=== PATIENT | male | born 1980 | race Caucasian/White ===

== ENCOUNTER 2017-01-01 18:05 | Emergency (ER) | payer SELFPAY ==
[2017-01-01 18:16] VITALS: BP 126/80
--- NOTE | 2017-01-01 18:32 | EDM.PDOC ---
ED HPI EYE COMPLAINT - General Chief Complaint: Eye Problems Stated Complaint: PAIN LT EYE Time Seen by Provider: 01/01/17 18:10 Source: Reports: Patient History Limitations: Reports: No limitations - History of Present Illness INITIAL COMMENTS - FREE TEXT/NARRATIVE: History of present illness: [Patient coming in complaining of acute pain to left eye. Patient indicates the pain is in the eyelid and feels like it wants is there and that they live feels that her full her in this morning it was erythematous. Patient indicates that it is worse in the morning when he wakes up and it feels like there's something in his eye lid.] Review of systems: As per history of present illness and below otherwise all systems reviewed and negative. Past medical history: As per history of present illness and as reviewed below otherwise noncontributory. Surgical history: As per history of present illness and as reviewed below otherwise noncontributory. Social history: No reported history of drug or alcohol abuse. Family history: As per history of present illness and as reviewed below otherwise noncontributory. Physical exam: HEENT: Atraumatic, normocephalic, pupils reactive, negative for conjunctival pallor or scleral icterus, mucous membranes moist, throat clear, neck supple, nontender, trachea midline. Lungs: Clear to auscultation, breath sounds equal bilaterally, chest nontender. Heart: S1S2, regular, negative for clicks, rubs, or JVD. Abdomen: Soft, nondistended, nontender. Negative for masses or hepatosplenomegaly. Negative for costovertebral tenderness. Pelvis: Stable nontender. Genitourinary: Deferred. Rectal: Deferred. Extremities: Atraumatic, negative for cords or calf pain. Neurovascular unremarkable. Neuro: Awake, alert, oriented. Cranial nerves II through XII unremarkable. Cerebellum unremarkable. Motor and sensory unremarkable throughout. Exam nonfocal. Lower lid noted to have appearance of an early hordeolum. Diagnostics: [] Therapeutics: [] Impression: [Hordeolum] Plan: [Antibiotic eye medication followup with primary care provider] Definitive disposition and diagnosis as appropriate pending reevaluation and review of above. - Related Data Allergies/ADRs: Allergies No Known Allergies Allergy (Verified 01/01/17 18:13) Home Meds: Ambulatory Orders Medication Instructions Recorded Confirmed Dexamethasone/Tobramycin [Tobradex 5 ml EYELF Q4H #1 bottle 01/01/17 Ophth Susp] Past Medical History HEENT History: Reports: None Cardiovascular History: Reports: None Respiratory History: Reports: None Gastrointestinal History: Reports: None Genitourinary History: Reports: None Musculoskeletal History: Reports: None Neurological History: Reports: None Psychiatric History: Reports: None Endocrine/Metabolic History: Reports: None Hematologic History: Reports: None Immunologic History: Reports: None Oncologic (Cancer) History: Reports: None Dermatologic History: Reports: None - Infectious Disease History Infectious Disease History: Reports: None Social & Family History - Family History Family Medical History: Noncontributory - Tobacco Use Smoking Status *Q: Never Smoker - Caffeine Use Caffeine Use: Reports: None - Recreational Drug Use Recreational Drug Use: No ED ROS GENERAL - Review of Systems Review Of Systems: See Below (The history of present illness) ED EXAM GENERAL W FULL EYE - Physical Exam Exam: See Below (The history of present illness) Course - Vital Signs Last Recorded V/S: Last Vital Signs Temp 36.6 C 01/01/17 18:13 Pulse 86 01/01/17 18:13 Resp 16 01/01/17 18:13 BP 126/80 01/01/17 18:13 Pulse Ox 99 01/01/17 18:13 Departure - Departure Time of Disposition: 18:30 Disposition: Home, Self-Care 01 Condition: good Clinical Impression: Hordeolum externum of left lower eyelid Prescriptions: Dexamethasone/Tobramycin [Tobradex Ophth Susp] 5 ml EYELF Q4H #1 bottle Forms: ED Department Discharge Additional Instructions: The following information is given to patients seen in the emergency department who are being discharged to home. This information is to outline your options for follow-up care. We provide all patients seen in our emergency department with a follow-up referral. The need for follow-up, as well as the timing and circumstances, are variable depending upon the specifics of your emergency department visit. If you don't have a primary care physician on staff, we will provide you with a referral. We always advise you to contact your personal physician following an emergency department visit to inform them of the circumstance of the visit and for follow-up with them and/or the need for any referrals to a consulting specialist. The emergency department will also refer you to a specialist when appropriate. This referral assures that you have the opportunity for follow-up care with a specialist. All of these measure are taken in an effort to provide you with optimal care, which includes your follow-up. Under all circumstances we always encourage you to contact your private physician who remains a resource for coordinating your care. When calling for follow-up care, please make the office aware that this follow-up is from your recent emergency room visit. If for any reason you are refused follow-up, please contact the [facility] Emergency Department at and asked to speak to the emergency department charge nurse. Take medication as directed Use hot packs to left eye as tolerated Followup primary care provider one to 2 days Return to ED as needed as discussed
== END 2017-01-01 18:39 | disposition home or self-care (01) ==
LOC: MW.ED 18:05
DX: H00.015 Hordeolum externum left lower eyelid (principal)
CPT/HCPCS: 99283

== ENCOUNTER 2017-05-16 15:38 | Emergency (ER) | payer OTHER ==
--- NOTE | 2017-05-16 15:55 | EDM.PDOC ---
ED HPI GENERAL MEDICAL PROBLEM - General Chief Complaint: ENT Problem Stated Complaint: THROAT HURTS Time Seen by Provider: 05/16/17 15:54 Source of Information: Reports: Patient - History of Present Illness INITIAL COMMENTS - FREE TEXT/NARRATIVE: HISTORY AND PHYSICAL: History of present illness: Sore throat increasing in severity over the last week some difficulty with solid food no difficulty with liquid Intermittent fever no chills sweats no nausea vomiting or diarrhea no drooling trismus or hot potato voice Review of systems: As per history of present illness and below otherwise all systems reviewed and negative. Past medical history: As per history of present illness and as reviewed below otherwise noncontributory. Surgical history: As per history of present illness and as reviewed below otherwise noncontributory. Social history: No reported history of drug or alcohol abuse. Family history: As per history of present illness and as reviewed below otherwise noncontributory. Physical exam: HEENT: Atraumatic, normocephalic, pupils reactive, negative for conjunctival pallor or scleral icterus, mucous membranes moist, throat clear, neck supple, nontender, trachea midline. Moderate erythema tonsils 3+ Lungs: Clear to auscultation, breath sounds equal bilaterally, chest nontender. Heart: S1S2, regular, negative for clicks, rubs, or JVD. Abdomen: Soft, nondistended, nontender. Negative for masses or hepatosplenomegaly. Negative for costovertebral tenderness. Pelvis: Stable nontender. Genitourinary: Deferred. Rectal: Deferred. Extremities: Atraumatic, negative for cords or calf pain. Neurovascular unremarkable. Neuro: Awake, alert, oriented. Cranial nerves II through XII unremarkable. Cerebellum unremarkable. Motor and sensory unremarkable throughout. Exam nonfocal. Diagnostics: []Rapid strep Therapeutics: []Amoxicillin Impression: []Acute pharyngitis Definitive disposition and diagnosis as appropriate pending reevaluation and review of above. Bilateral Throat Pain Score (Numeric/FACES): 6 - Related Data Allergies Allergy/AdvReac Type Severity Reaction Status Date / Time No Known Allergies Allergy Verified 05/16/17 15:46 Home Meds: Home Meds . [No Known Home Meds] 05/16/17 [History] Past Medical History HEENT History: Reports: None Cardiovascular History: Reports: None Respiratory History: Reports: None Gastrointestinal History: Reports: None Genitourinary History: Reports: None Musculoskeletal History: Reports: None Neurological History: Reports: None Psychiatric History: Reports: None Endocrine/Metabolic History: Reports: None Hematologic History: Reports: None Immunologic History: Reports: None Oncologic (Cancer) History: Reports: None Dermatologic History: Reports: None - Infectious Disease History Infectious Disease History: Reports: None Social & Family History - Family History Family Medical History: Noncontributory - Tobacco Use Smoking Status *Q: Former Smoker Used Tobacco, but Quit: No - Caffeine Use Caffeine Use: Reports: Soda - Recreational Drug Use Recreational Drug Use: No ED ROS GENERAL - Review of Systems Review Of Systems: ROS reveals no pertinent complaints other than HPI. ED EXAM, GENERAL - Physical Exam Exam: See Below Course - Vital Signs Last Recorded V/S: Last Vital Signs Temp 36.3 C 05/16/17 15:46 Pulse 92 05/16/17 15:46 Resp 18 05/16/17 15:46 BP 126/67 05/16/17 15:46 Pulse Ox 96 05/16/17 15:46 - Orders/Labs/Meds Orders: Active Orders 24 hr Category Date Time Status CULTURE STREP A CONFIRMATION [RM] Stat Lab 05/16/17 15:05 Results STREP SCRN A RAPID W CULT CONF [RM] Stat Lab 05/16/17 15:05 Results Departure - Departure Time of Disposition: 16:48 Disposition: Home, Self-Care 01 Condition: Good Clinical Impression: Acute pharyngitis - Discharge Information Referrals: PCP,None [Primary Care Provider] - Forms: ED Department Discharge Additional Instructions: The following information is given to patients seen in the emergency department who are being discharged to home. This information is to outline your options for follow-up care. We provide all patients seen in our emergency department with a follow-up referral. The need for follow-up, as well as the timing and circumstances, are variable depending upon the specifics of your emergency department visit. If you don't have a primary care physician on staff, we will provide you with a referral. We always advise you to contact your personal physician following an emergency department visit to inform them of the circumstance of the visit and for follow-up with them and/or the need for any referrals to a consulting specialist. The emergency department will also refer you to a specialist when appropriate. This referral assures that you have the opportunity for follow-up care with a specialist. All of these measure are taken in an effort to provide you with optimal care, which includes your follow-up. Under all circumstances we always encourage you to contact your private physician who remains a resource for coordinating your care. When calling for follow-up care, please make the office aware that this follow-up is from your recent emergency room visit. If for any reason you are refused follow-up, please contact the [facility] emergency department at and asked to speak to the emergency department charge nurse. - My Orders Last 24 Hours: My Active Orders 05/16/17 15:05 CULTURE STREP A CONFIRMATION [RM] Stat STREP SCRN A RAPID W CULT CONF [RM] Stat - Assessment/Plan Last 24 Hours: My Active Orders 05/16/17 15:05 CULTURE STREP A CONFIRMATION [RM] Stat STREP SCRN A RAPID W CULT CONF [RM] Stat
[2017-05-16 16:58] VITALS: BP 120/62
== END 2017-05-16 16:51 | disposition home or self-care (01) ==
LOC: MW.ED 15:38
DX: J02.9 Acute pharyngitis, unspecified (principal); Z87.891 Personal history of nicotine dependence
CPT/HCPCS: 87081; 87880; 99283

== ENCOUNTER 2017-11-16 08:24 | Day surgery (SDC) | payer BC, OTHER ==
[~2017-11-16 08:24] MED LIST: Lactated Ringers 1,000 ML IV SCH; Lidocaine 2% 5 ML SDV ONE; Propofol 200 MG/20 ML SDV ONE
--- NOTE | 2017-11-16 09:29 | PCM.PREANE ---
Preanesthetic Assessment - Anesthesia/Transfusion/Family Hx Anesthesia History: No Prior Anesthesia Family History of Anesthesia Reaction: No Transfusion History: No Prior Transfusion(s) Intubation History: Unknown - Review of Systems General: No Symptoms Pulmonary: No Symptoms Cardiovascular: No Symptoms Gastrointestinal: Hematochezia Neurological: No Symptoms Other: Reports: None - Physical Assessment Height: 1.65 m Weight: 68.946 kg ASA Class: 1 Mental Status: Alert & Oriented x3 Airway Class: Mallampati = 2 Dentition: Reports: Normal Dentition, Broken Tooth/Teeth (front upper incisor x1 ) Thyro-Mental Finger Breadths: 3 Mouth Opening Finger Breadths: 3 ROM/Head Extension: Full Lungs: Clear to Auscultation, Normal Respiratory Effort Cardiovascular: Regular Rate, Regular Rhythm - Allergies Allergies/Adverse Reactions: Allergies Allergy/AdvReac Type Severity Reaction Status Date / Time No Known Allergies Allergy Verified 11/13/17 08:20 - Blood Blood Available: No - Anesthesia Plan Pre-Op Medication Ordered: None - Acknowledgements Anesthesia Type Planned: MAC Pt an Appropriate Candidate for the Planned Anesthesia: Yes Alternatives and Risks of Anesthesia Discussed w Pt/Guardian: Yes Pt/Guardian Understands and Agrees with Anesthesia Plan: Yes PreAnesthesia Questionnaire HEENT History: Reports: None Cardiovascular History: Reports: None Respiratory History: Reports: None Gastrointestinal History: Reports: Hemorrhoids Genitourinary History: Reports: None Musculoskeletal History: Reports: None Neurological History: Reports: None Psychiatric History: Reports: None Endocrine/Metabolic History: Reports: None Hematologic History: Reports: None Immunologic History: Reports: None Oncologic (Cancer) History: Reports: None Dermatologic History: Reports: None - Infectious Disease History Infectious Disease History: Reports: None - Past Surgical History Head Surgeries/Procedures: Reports: None - SUBSTANCE USE Smoking Status *Q: Former Smoker (quit 1 1/2 years ago) Tobacco Use Within Last Twelve Months: No Recreational Drug Use History: No - HOME MEDS Home Medications: Home Meds Hydrocortisone Acetate [Anusol-Hc] 1 supp RECTAL ASDIRECTED PRN 11/13/17 [ History] Ibuprofen 2 tab PO ASDIRECTED PRN 11/13/17 [History] - CURRENT (IN HOUSE) MEDS Current Meds: Current Medications Lactated Ringer's (Ringers, Lactated) 1,000 mls @ 125 mls/hr IV ASDIRECTED VAZQUEZ Discontinued Medications Lidocaine (Xylocaine-Mpf 2%) Confirm Administered Dose 5 ml .ROUTE .STK-MED ONE Stop: 11/16/17 08:09 Propofol (Diprivan 20 Ml) Confirm Administered Dose 200 mg .ROUTE .STK-MED ONE Stop: 11/16/17 08:09 Propofol (Diprivan 20 Ml) Confirm Administered Dose 200 mg .ROUTE .STK-MED ONE Stop: 11/16/17 08:09
[2017-11-16] MEDS ORDERED: Propofol 200 MG/20 ML SDV ONE (10:19)
--- NOTE | 2017-11-16 10:41 | PCM.OPNOTE ---
- General Post-Op/Procedure Note Date of Surgery/Procedure: 11/16/17 Operative Procedure(s): Esophagogastroduodenoscopy with biopsy. Colonoscopy. Pre Op Diagnosis: Hemoccult-positive stool. Bright red rectal bleeding. Post-Op Diagnosis: Duodenitis and gastritis. No evidence of colonic neoplasia. Anesthesia Technique: MAC (ASA I) Primary Surgeon: David Westbrook Condition: Good Free Text/Narrative:: Dictation [id number] CPT CODE 69520/54664
[2017-11-16] MEDS ORDERED: Lactated Ringers 1,000 ML IV SCH (10:45)
[2017-11-16 11:07] VITALS: BP 119/61
--- NOTE | 2017-11-16 11:36 | OR ---
SURGEON: David Westbrook M.D. DATE OF PROCEDURE: 11/16/2017 OPERATION PERFORMED: Esophagogastroduodenoscopy with biopsy. ANESTHESIA: MAC. ASA CLASSIFICATION: I. PREOPERATIVE DIAGNOSIS: Hemoccult positive stool. POSTOPERATIVE DIAGNOSES: 1. Gastritis. 2. Duodenitis. DESCRIPTION OF PROCEDURE: The patient was taken to the endoscopy room, positioned on the endoscopy table in the supine position. Time-out was called for appropriate identification of the patient and procedure. Monitored anesthesia care was provided. A bite block was placed between the patient's teeth. The gastroscope was inserted through the bite block into the oropharynx and advanced without difficulty through the esophagus and stomach into the duodenum where examination was carried out in a retrograde fashion. The duodenum does show [id number] duodenitis. Biopsies were obtained for histologic confirmation. The gastroscope was withdrawn into the stomach, which also shows a moderate gastritis. Separate biopsies of the stomach were obtained to look for the presence of Helicobacter pylori. The gastroscope was then retroflexed to visualize the proximal stomach. No proximal lesions were identified. No hiatal hernia was noted. The gastroscope was then straightened, the stomach aspirated, and the scope slowly withdrawn. The GE junction was well defined and shows no acute inflammatory changes. The esophagus demonstrated good contractility. No mid or proximal lesions were identified. The vocal cords were visualized as the scope was withdrawn and noted to move symmetrically. The gastroscope was then removed with the patient having tolerated this portion of the procedure well. Following colonoscopy, he was taken to recovery room. KOLE SERRATO /[id number]
--- NOTE | 2017-11-16 11:42 | OR ---
SURGEON: David Westbrook M.D. DATE OF PROCEDURE: 11/16/2017 OPERATION PERFORMED: Colonoscopy. ANESTHESIA: MAC. ASA CLASSIFICATION: I. PREOPERATIVE DIAGNOSIS: Bright red blood per rectum. POSTOPERATIVE DIAGNOSIS: No evidence of neoplasia. DESCRIPTION OF PROCEDURE: With the patient having completed esophagogastroduodenoscopy with biopsy, he was now positioned in the left lateral decubitus position. The colonoscope was inserted into the rectum and advanced without difficulty to the cecum. The cecum was identified by internal landmarks and external pressure. The colonoscope was retroflexed to visualize the ascending colon from below then straightened and slowly withdrawn. The cecum, ascending colon, hepatic flexure, transverse colon, splenic flexure, descending colon, sigmoid colon, and rectum were very well visualized. No tumors or polyps were seen. There was no evidence of inflammatory bowel disease. No ulcerations were noted. Once the colonoscope was withdrawn to the rectum, it was retroflexed to visualize the anal orifice from above. Again no tumors or polyps were seen and there were no acute hemorrhoidal changes. The colonoscope was then straightened, the rectum aspirated, and the colonoscope removed. The patient tolerated the procedure well and was taken to recovery room in satisfactory condition. KOLE SERRATO /[id number]
== END 2017-11-16 11:21 | disposition home or self-care (01) ==
LOC: MW.SDS 08:24
PROVIDERS: ATTEND Surgery
DX: K62.5 Hemorrhage of anus and rectum (principal); R19.5 Other fecal abnormalities; K29.70 Gastritis, unspecified, without bleeding; K29.80 Duodenitis without bleeding; Z87.891 Personal history of nicotine dependence
CPT/HCPCS: 43239; 45378; J7120; 88305; 88312; J2704

== ENCOUNTER 2020-11-18 12:14 | Emergency (ER) | payer BC, OTHER ==
[2020-11-18] MEDS ORDERED: Tetracaine HCl/PF 0.5% 4 ML Bottle EYEBOTH STA (12:28)
[2020-11-18] MEDS ORDERED: Fluorescein 1 MG Ophth Strip EYEBOTH ONE (12:29)
[2020-11-18] MEDS ORDERED: Erythromycin Base 0.5% Ophth Oint 1 GM Tube EYEBOTH ONE (12:52)
--- NOTE | 2020-11-18 13:00 | EDM.PDOC ---
ED HPI GENERAL MEDICAL PROBLEM - General Chief Complaint: Eye Problems Stated Complaint: CHEMICAL IN EYES Time Seen by Provider: 11/18/20 12:23 - History of Present Illness INITIAL COMMENTS - FREE TEXT/NARRATIVE: CHIEF COMPLAINT(S): Chemical eye exposure HISTORY OF PRESENT ILLNESS: This is a 40-year-old man without any significant past medical history who comes to the emergency department with a chief complaint of chemical exposure. The patient states that immediately prior to arrival he accidentally sprayed a corrosive substance with MDS 3519. He states that he immediately came to the emergency department. He states that his eyes are burning. He denies any blurry vision or loss of vision. He denies any exposure anywhere else. He was not wearing protective eye gear. REVIEW OF SYSTEMS: Constitutional: Denies fever, chills. Eyes: Positive for eye pain and eyelid irritation Ears, Nose, Mouth, & Throat: Denies earache, sore throat, Cardiovascular: Denies chest pain Respiratory: Denies shortness of breath or trouble breathing Gastrointestinal: Denies Nausea, vomiting, diarrhea, hematochezia. Genitourinary: Denies hematuria Skin: Positive for irritation around eyelids MSK: Denies joint pain Neurological: Denies blurred vision, double vision, numbness, tingling, weakness Psychiatric: Denies depression PAST MEDICAL HISTORY: As per history of present illness and as reviewed below otherwise noncontributory. SURGICAL HISTORY: As per history of present illness and as reviewed below otherwise noncontributory. SOCIAL HISTORY: As per history of present illness and as reviewed below otherwise noncontributory. FAMILY HISTORY: As per history of present illness and as reviewed below otherwise noncontributory. EXAMINATION OF ORGAN SYSTEMS/BODY AREAS: Constitutional: Blood pressure was 147/94, heart rate 91, respiratory rate 17 with an oxygen saturation of 97% on room air. Temperature 36.6 General: Young man who is not in any acute distress Psychiatric: Appropriate mood and affect. Eyes: There is injected conjunctiva bilaterally with some eyelid irritation on the upper and lower eyelids bilaterally. The patient has normal visual acuity in both eyes. No visual field defects. On fluorescein examination there is a pinpoint corneal abrasion in the left eye located centrally over the pupil with some small abrasions bilaterally just inferior to the pupils. Extraocular movements are intact. Pupils were equal round reactive to light. ENMT: Moist mucous membranes. No pharyngeal erythema Cardiovascular: Regular, rate, and rhythm. No gallops, murmurs, or rubs. Respiratory: Lungs clear to auscultation bilaterally. No wheezes, rales, or rhonchi. Gastrointestinal: Soft, non-tender, non-distended. Normoactive bowel sounds Genitourinary: No suprapubic tenderness Musculoskeletal: Normal range of motion. Skin: There is bilateral upper and lower eyelid irritation Neurological: Alert, GCS 15 MEDICAL DECISION MAKING AND COURSE IN THE ED WITH INTERPRETATION/REVIEW OF DIAGNOSTIC STUDIES: This is a 40-year-old man and without any significant past medical history who comes to the emergency department with chemical exposure to the eye with chemical conjunctivitis, eyelid skin irritation, and multiple small corneal abrasions. Prior to evaluation we did take the patient to the eyewash station and had him wash his eyes out for 15 minutes. The patient stated his tetanus was up-to-date. At this time I did contact director of hemophilia Dr. Taveras and discussed the patient with him. At this time he stated that he would be able to see him in 45 minutes in his clinic. Therefore at this time he did not recommend any antibiotics until he is evaluated in clinic. I did discuss this with the patient he was amenable to this plan. DISPOSITION: The patient was discharged in order to go to his ophthalmology appointment CONDITION: Fair PROCEDURES: None FINAL IMPRESSION(S)/DIAGNOSES: 1. Acute chemical exposure to bilateral eyes 2. Acute bilateral corneal abrasions 3. Acute eyelid irritation bilaterally 4. Acute chemical conjunctivitis Sanjay Reza M.D. - Related Data Allergies Allergy/AdvReac Type Severity Reaction Status Date / Time No Known Allergies Allergy Verified 11/18/20 12:16 Home Meds: Home Meds Hydrocortisone Acetate [Anusol-Hc] 1 supp RECTAL ASDIRECTED PRN 11/13/17 [Hi story] Ibuprofen 2 tab PO ASDIRECTED PRN 11/13/17 [History] Past Medical History HEENT History: Reports: None Cardiovascular History: Reports: None Respiratory History: Reports: None Gastrointestinal History: Reports: Hemorrhoids Genitourinary History: Reports: None Musculoskeletal History: Reports: None Neurological History: Reports: None Psychiatric History: Reports: None Endocrine/Metabolic History: Reports: None Hematologic History: Reports: None Immunologic History: Reports: None Oncologic (Cancer) History: Reports: None Dermatologic History: Reports: None - Infectious Disease History Infectious Disease History: Reports: None - Past Surgical History Head Surgeries/Procedures: Reports: None Social & Family History - Family History Family Medical History: No Pertinent Family History - Tobacco Use Tobacco Use Status *Q: Never Tobacco User - Caffeine Use Caffeine Use: Reports: Energy Drinks, Soda - Recreational Drug Use Recreational Drug Use: No ED ROS GENERAL - Review of Systems Review Of Systems: See Below ED EXAM GENERAL W FULL EYE - Physical Exam Exam: See Below Course - Vital Signs Last Recorded V/S: Last Vital Signs Temp 36.6 C 11/18/20 13:06 Pulse 83 11/18/20 13:06 Resp 17 11/18/20 12:22 BP 122/79 11/18/20 13:06 Pulse Ox 96 11/18/20 13:06 - Orders/Labs/Meds Meds: Medications Discontinued Medications Generic Name Dose Route Start Last Admin Trade Name Fernandezq PRN Reason Stop Dose Admin Erythromycin 1 gm 11/18/20 12:52 Erythromycin 0.5% Ophth Oint EYEBOTH 11/18/20 12:53 ONETIME ONE Fluorescein Sodium 1 mg 11/18/20 12:29 11/18/20 12:45 Ful-Roxy EYEBOTH 11/18/20 12:30 1 mg ONETIME ONE Administration Tetracaine HCl 1 ml 11/18/20 12:28 11/18/20 12:45 Tetracaine 0.5% Steri-Unit Brooke EYEBOTH 11/18/20 12:29 2 drop ASDIRECTED STA Administration Departure - Departure Time of Disposition: 12:57 Disposition: Home, Self-Care 01 Condition: Fair Clinical Impression: Corneal abrasion of both eyes Qualifiers: Encounter type: initial encounter Qualified Code(s): S05.01XA - Injury of conjunctiva and corneal abrasion without foreign body, right eye, initial encounter - Discharge Information *PRESCRIPTION DRUG MONITORING PROGRAM REVIEWED*: No *COPY OF PRESCRIPTION DRUG MONITORING REPORT IN PATIENT SUSU: No Instructions: Chemical Conjunctivitis, Adult, [id number], Corneal Abrasion, [id number] Referrals: Enoc Taveras MD [Ordering Only Provider] - Forms: ED Department Discharge Additional Instructions: You have been evaluated in the emergency department. At this time you do have chemical conjunctivitis with a small corneal abrasion in the left eye. At this time I did contact Dr. Taveras who is our director of hemophilia. He will see you in 45 minutes in his clinic. Therefore we will not be providing you with antibiotics. Please follow his recommendations and return to the clinic for any new or worsening symptoms. Please remember to wear protective gear when using corrosive substances. Please follow-up with your primary care physician. [facility] [address] [place] [id number] [facility] [address] [place] [id number] The patient is informed of any results of their evaluation and diagnostic workup and all questions are answered. They are given discharge instructions and return precautions. The patient is stable for discharge. The patient states they understand and agree with the plan and that they will return if their symptoms get worse or if they have any new concerns. The following information is given to patients seen in the emergency department who are being discharged to home. This information is to outline your options for follow-up care. We provide all patients seen in our emergency department with a follow-up referral. The need for follow-up, as well as the timing and circumstances, are variable depending upon the specifics of your emergency department visit. If you don't have a primary care physician on staff, we will provide you with a referral. We always advise you to contact your personal physician following an emergency department visit to inform them of the circumstance of the visit and for follow-up with them and/or the need for any referrals to a consulting specialist. The emergency department will also refer you to a specialist when appropriate. This referral assures that you have the opportunity for follow-up care with a specialist. All of these measure are taken in an effort to provide you with optimal care, which includes your follow-up. Under all circumstances we always encourage you to contact your private physician who remains a resource for coordinating your care. When calling for follow-up care, please make the office aware that this follow-up is from your recent emergency room visit. If for any reason you are refused follow-up, please contact the [facility] Emergency Department at and asked to speak to the emergency department charge nurse. Sepsis Event Note (ED) - Evaluation Sepsis Screening Result: No Definite Risk
[2020-11-18 13:32] VITALS: BP 122/79; PULSE 83
== END 2020-11-18 13:06 | disposition home or self-care (01) ==
LOC: MW.ED 12:14
DX: S05.02XA Injury of conjunctiva and corneal abrasion without foreign body, left eye, initial encounter (principal); S05.01XA Injury of conjunctiva and corneal abrasion without foreign body, right eye, initial encounter; H10.213 Acute toxic conjunctivitis, bilateral; X58.XXXA Exposure to other specified factors, initial encounter
CPT/HCPCS: 99283

== ENCOUNTER 2021-04-04 06:20 | Emergency (ER) | payer OTHER ==
--- NOTE | 2021-04-04 06:54 | PCM.EKG ---
#1 Interpretation EKG Date: 04/04/21 Time: 06:46 Rhythm: NSR Rate (Beats/Min): 59 [place]: Normal P-Wave: Present QRS: Normal ST-T: Normal QT: Normal Comparison: NA - No Prior EKG (Sinus Rhythm)
[2021-04-04] MEDS ORDERED: Sodium Chloride 0.9% 10 ML Syringe FLUSH PRN (06:57)
[2021-04-04] MEDS ORDERED: Sodium Chloride 0.9% 1,000 ML IV ONE (06:57)
[2021-04-04] MEDS ORDERED: Sodium Chloride 0.9% 2.5 ML Syringe FLUSH PRN (06:57)
[2021-04-04] MEDS ORDERED: Meclizine 25 MG Tab PO ONE (07:19)
--- NOTE | 2021-04-04 07:28 | EDM.PDOC ---
ED HPI GENERAL MEDICAL PROBLEM - General Chief Complaint: General Stated Complaint: DIZZY SPELLS Time Seen by Provider: 04/04/21 07:03 - History of Present Illness INITIAL COMMENTS - FREE TEXT/NARRATIVE: HISTORY AND PHYSICAL: History of present illness: This is a 40-year-old gentleman with no significant past medical history who presents ER today secondary to vertigo that started approximately 2 3 in the morning and woke him up from his sleep. Patient reports he has no history of hypertension, diabetes, liver, lung, kidney problems in the past. Patient denies any prior abdominal or chest surgeries. Patient reports he drinks occasional alcohol and his last drink was 2 days ago during the bicycle races. Patient denies any tobacco or drugs. Patient has no known drug allergies. Patient reports that he had a similar episode of this in the past and was told by his doctor that it was secondary to abnormal crystals in his ears and that spontaneously resolved. Patient reports he is never had a CT scan of his head in the past. Patient reports that last night prior to going to sleep he was cleaning his ears out with Q-tips and started feeling his symptoms initiate. He reports that the dizziness/vertigo past prior to going to sleep and then came back on approximately 2 or 3 in the morning. Patient denies any trauma or bleeding from his ears. Patient denies any recent fevers, shakes, chills, nausea, vomiting, diarrhea, dysuria, frequency, urgency, gait instability, double vision, blurred vision, slurred speech, weakness to his upper or lower extremities. Patient denies any loss of bowel or bladder function. Patient reports he had normal p.o. intake of solids and liquids over the last several days. Patient denies any change in stools. Patient denies any melena or bright red blood per rectum or hematuria. Patient denies any sore throat or hearing changes. Review of systems: As per history of present illness and below otherwise all systems reviewed and negative. Past medical history: As per history of present illness and as reviewed below otherwise noncontributory. Surgical history: As per history of present illness and as reviewed below otherwise noncontributory. Social history: No reported history of drug abuse. Family history: As per history of present illness and as reviewed below otherwise noncontributory. Physical exam: This patient was seen and evaluated during the 2019 SARS-CoV-2 novel coronavirus pandemic period. Community viral transmission is ongoing at time of this encounter and the emergency department is operating under pandemic response procedures. Constitutional: Patient is oriented to person, place, and time. Appears well- developed and well-nourished. No distress. HEENT: Moist mucous membranes Head: Normocephalic and atraumatic Eyes: Right eye exhibits no discharge. Left eye exhibits no discharge. No scleral icterus Neck: Normal range of motion. No tracheal deviation present. Cardiovascular: Normal rate and regular rhythm. Pulmonary: Effort normal, no respiratory distress. Abdominal: No distention Musculoskeletal: Normal range of motion Neuro: A&Ox3. Cranial nerves II-XII grossly intact, 5/5 strength to bilateral upper and lower extremities, sensation intact to bilateral upper and lower extremities, no nystagmus, PERRLA, EOMI, normal speech, proprioception intact to bilateral lower extremities, normal finger to nose test, gait normal Skin: [place], warm and dry. Psychiatric: Normal mood and affect. Behavior is normal. Judgment and thought content normal. Nursing note and vital signs have been reviewed Patient's tympanic membrane's are pearly jo without any evidence of trauma. No fluid behind eardrums. Patient has a normal [id number], vphj-[id number], rapid alternating motion test. Patient has no nystagmus. Diagnostics: CT head: CBC, CMP, troponin EKG: As interpreted by ER physician: Emelina: Nonspecific ST-T wave abnormalities Normal axis No evidence of ST elevation HI Normal sinus rhythm heart rate of 59 Therapeutics: NSS x1 L Meclizine 50 mg p.o. Assessment and plan: This is a 40-year-old gentleman who presents to the ER today with a second episode of vertigo. Patient reports that he did not have a CT scan during his prior episode. Patient's presentation appears to be more consistent with benign positional vertigo as his symptoms do increase with lying flat. Given that the patient has never had a CT scan in the past of his head we will obtain 1 today to rule out any other occult pathology that can be causing this. Patient given IV fluids and meclizine. Patient was's labs checked and will be reevaluated a fter medication. 8:38 AM: Patient's labs are all within normal limits. Patient CT scan did not reveal any acute pathology. Patient was reevaluated at 8:30 AM reports that when he walked to the bathroom to give us a urine sample that he felt significant improvement in his dizziness. 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 Patient be given a prescription for meclizine. Reassessment at the time of disposition demonstrates that the patient is in no acute distress. The patient has remained stable throughout the entire ED visit and is without objective evidence for acute process requiring urgent intervention or hospitalization. The patient is stable for discharge, counseling is provided as documented above, discussed symptomatic treatment and specific conditions for return. I have spoken with the patient/caregiver and discussed todays findings, in a ddition to providing specific details for the plan of care. Questions are answered and there is agreement with the plan. Definitive disposition and diagnosis as appropriate pending reevaluation and review of above. - Related Data Allergies Allergy/AdvReac Type Severity Reaction Status Date / Time No Known Allergies Allergy Verified 04/04/21 06:37 Home Meds: Home Meds Meclizine [Antivert] 25 mg PO Q6H PRN #20 tab 04/04/21 [Rx] Metoclopramide HCl 10 mg PO Q6HR PRN 04/04/21 [History] Past Medical History HEENT History: Reports: None Cardiovascular History: Reports: None Respiratory History: Reports: None Gastrointestinal History: Reports: Hemorrhoids Genitourinary History: Reports: None Musculoskeletal History: Reports: None Neurological History: Reports: None Psychiatric History: Reports: None Endocrine/Metabolic History: Reports: None Insulin Pump Model and Appeals Nurse: None Hematologic History: Reports: None Immunologic History: Reports: None Oncologic (Cancer) History: Reports: None Dermatologic History: Reports: None - Infectious Disease History Infectious Disease History: Reports: None - Past Surgical History Head Surgeries/Procedures: Reports: None Social & Family History - Family History Family Medical History: No Pertinent Family History - Caffeine Use Caffeine Use: Reports: Soda - Recreational Drug Use Recreational Drug Use: No ED ROS GENERAL - Review of Systems Review Of Systems: See Below ED EXAM, GENERAL - Physical Exam Exam: See Below Course - Vital Signs Last Recorded V/S: Last Vital Signs Temp 97.1 F 04/04/21 06:30 Pulse 69 04/04/21 08:05 Resp 18 04/04/21 06:30 BP 116/72 04/04/21 08:05 Pulse Ox 97 04/04/21 08:05 - Orders/Labs/Meds Orders: Active Orders 24 hr Category Date Time Status EKG Documentation Completion [RC] STAT Care 04/04/21 06:43 Active Sodium Chloride 0.9% [Saline Flush] Med 04/04/21 06:57 Active 10 ml FLUSH ASDIRECTED PRN Sodium Chloride 0.9% [Saline Flush] Med 04/04/21 06:57 Active 2.5 ml FLUSH ASDIRECTED PRN Saline Lock Insert [OM.PC] Stat Oth 04/04/21 06:57 Ordered Medication Orders Sodium Chloride (Sodium Chloride 0.9% 10 Ml Syringe) 10 ml FLUSH ASDIRECTED PRN PRN Reason: Keep Vein Open Last Admin: 04/04/21 07:25 Dose: 10 ml Documented by: PRETTY Sodium Chloride (Sodium Chloride 0.9% 2.5 Ml Syringe) 2.5 ml FLUSH ASDIRECTED PRN PRN Reason: Keep Vein Open Last Admin: 04/04/21 07:25 Dose: 2.5 ml Documented by: PRETTY Labs: Laboratory Tests 04/04/21 04/04/21 04/04/21 Range/Units 07:23 07:23 08:17 WBC 6.98 (4.0-11.0) K/uL RBC 5.49 (4.50-5.90) M/uL Hgb 16.5 (13.0-17.0) g/dL Hct 45.1 (38.0-50.0) % MCV 82.1 (80.0-98.0) fL MCH 30.1 (27.0-32.0) pg MCHC 36.6 (31.0-37.0) g/dL RDW Std Deviation 36.3 (28.0-62.0) fl RDW Coeff of Juan 12 (11.0-15.0) % Plt Count 188 (150-400) K/uL MPV 10.10 (7.40-12.00) fL Add Manual Diff YES Neutrophils % (Manual) 60 (48.0-80.0) % Band Neutrophils % 2 % Lymphocytes % (Manual) 30 (16.0-40.0) % Monocytes % (Manual) 4 (0.0-15.0) % Eosinophils % (Manual) 3 (0.0-7.0) % Basophils % (Manual) 1 (0.0-1.5) % Absolute Seg Neuts 4.2 (1.4-5.7) Band Neutrophils # 0.1 Lymphocytes # (Manual) 2.1 (0.6-2.4) Monocytes # (Manual) 0.3 (0.0-0.8) Eosinophils # (Manual) 0.2 (0.0-0.7) Basophils # (Manual) 0.1 (0.0-0.1) Sodium 139 (136-148) mmol/L Potassium 4.0 (3.5-5.1) mmol/L Chloride 105 (98-107) mmol/L Carbon Dioxide 25.3 (21.0-32.0) mmol/L BUN 18 (7.0-18.0) mg/dL Creatinine 1.1 (0.8-1.3) mg/dL Est Cr Clr Drug Dosing TNP Estimated GFR (MDRD) > 60.0 ml/min Glucose 99 (74-106) mg/dL Calcium 8.8 (8.5-10.1) mg/dL Total Bilirubin 0.4 (0.2-1.0) mg/dL AST 19 (15-37) IU/L ALT 36 (14-63) IU/L Alkaline Phosphatase 82 (46-116) U/L Troponin I < 0.050 (0.000-0.056) ng/mL Total Protein 6.9 (6.4-8.2) g/dL Albumin 3.7 (3.4-5.0) g/dL Globulin 3.2 (2.6-4.0) g/dL Albumin/Globulin Ratio 1.2 (0.9-1.6) Urine Color YELLOW Urine Appearance CLEAR Urine pH 5.5 (5.0-8.0) Ur Specific Guild <= 1.005 (1.001-1.035) Urine Protein NEGATIVE (NEGATIVE) mg/dL Urine Glucose (UA) NEGATIVE (NEGATIVE) mg/dL Urine Ketones NEGATIVE (NEGATIVE) mg/dL Urine Occult Blood NEGATIVE (NEGATIVE) Urine Nitrite NEGATIVE (NEGATIVE) Urine Bilirubin NEGATIVE (NEGATIVE) Urine Urobilinogen 0.2 (<2.0) EU/dL Ur Leukocyte Esterase NEGATIVE (NEGATIVE) Meds: Medications Generic Name Dose Route Start Last Admin Trade Name Alan PRN Reason Stop Dose Admin Sodium Chloride 10 ml 04/04/21 06:57 04/04/21 07:25 Sodium Chloride 0.9% 10 Ml Syringe FLUSH 10 ml ASDIRECTED PRN Administration Keep Vein Open Sodium Chloride 2.5 ml 04/04/21 06:57 04/04/21 07:25 Sodium Chloride 0.9% 2.5 Ml Syringe FLUSH 2.5 ml ASDIRECTED PRN Administration Keep Vein Open Discontinued Medications Generic Name Dose Route Start Last Admin Trade Name Fernandezq PRN Reason Stop Dose Admin Sodium Chloride 1,000 mls @ 999 mls/hr 04/04/21 06:57 04/04/21 07:22 Normal Saline IV 04/04/21 07:57 999 mls/hr .Bolus ONE Administration Meclizine HCl 50 mg 04/04/21 07:19 04/04/21 07:26 Meclizine 25 Mg Tab PO 04/04/21 07:20 50 mg ONETIME ONE Administration Departure - Departure Time of Disposition: 08:39 Disposition: Home, Self-Care 01 Condition: Good Clinical Impression: Vertigo - Discharge Information Instructions: Vertigo, How to Perform the Kathleen Maneuver, Benign Positional Vertigo Referrals: Ronnell Avila MD [Primary Care Provider] - Forms: ED Department Discharge Additional Instructions: You were seen and evaluated in the ER today secondary to vertigo. Your symptoms are most likely related to inflammation to the bones and crystals in your inner ear canal. You will be given a prescription for meclizine to take which can assist with the symptoms. You are not to drive while on this medication or while you are still having the dizziness. Please make an appointment to see your doctor in the next 2 to 3 days for reevaluation. The following information is given to patients seen in the emergency department who are being discharged to home. This information is to outline your options for follow-up care. We provide all patients seen in our emergency department with a follow-up referral. The need for follow-up, as well as the timing and circumstances, are variable depending upon the specifics of your emergency department visit. If you don't have a primary care physician on staff, we will provide you with a referral. We always advise you to contact your personal physician following an emergency department visit to inform them of the circumstance of the visit and for follow-up with them and/or the need for any referrals to a consulting specialist. The emergency department will also refer you to a specialist when appropriate. This referral assures that you have the opportunity for follow-up care with a specialist. All of these measure are taken in an effort to provide you with optimal care, which includes your follow-up. Under all circumstances we always encourage you to contact your private physician who remains a resource for coordinating your care. When calling for follow-up care, please make the office aware that this follow-up is from your recent emergency room visit. If for any reason you are refused follow-up, please contact the [facility] Emergency Department at and asked to speak to the emergency department charge nurse. [facility] [address] [place] [address] [id number] [address] [id number] Sepsis Event Note (ED) - Evaluation Sepsis Screening Result: No Definite Risk - Focused Exam Vital Signs: Vital Signs Temp Pulse Resp BP Pulse Ox 04/04/21 08:05 69 116/72 97 04/04/21 07:50 78 119/76 97 04/04/21 07:35 70 122/75 97 04/04/21 07:20 70 108/84 95 04/04/21 06:30 97.1 F 67 18 123/73 97 - My Orders Last 24 Hours: My Active Orders 04/04/21 06:57 Sodium Chloride 0.9% [Saline Flush] 10 ml FLUSH ASDIRECTED PRN Sodium Chloride 0.9% [Saline Flush] 2.5 ml FLUSH ASDIRECTED PRN Saline Lock Insert [OM.PC] Stat - Assessment/Plan Last 24 Hours: My Active Orders 04/04/21 06:57 Sodium Chloride 0.9% [Saline Flush] 10 ml FLUSH ASDIRECTED PRN Sodium Chloride 0.9% [Saline Flush] 2.5 ml FLUSH ASDIRECTED PRN Saline Lock Insert [OM.PC] Stat
[2021-04-04 08:07] LABS: BLOOD UREA NITROGEN,BUN 18 mg/dL (7.0-18.0); CARBON DIOXIDE,CO2 25.3 mmol/L (21.0-32.0); CHLORIDE,CL 105 mmol/L (98-107); GLUCOSE RANDOM 99 mg/dL (74-106); SODIUM,NA 139 mmol/L (136-148)
--- NOTE | 2021-04-04 08:08 | CT ---
Indication: Pt w/vertigo this morning. On and off spells since November. Technique: CT of the head without contrast. Coronal and sagittal reformats. Bone and soft tissue windows. Comparison: No prior studies available for comparison at this institution. Findings: No acute intracranial hemorrhage or extra-axial collection. No evidence of acute cortical infarction. No mass effect or midline shift. Normal cerebral volume. The ventricles are normal in size, shape and contour. There is normal bunch and white matter differentiation. The orbital contents are normal. No calvarial fractures. No lytic or sclerotic osseous lesions within the calvarium or skull base. Scalp and other imaged soft tissue structures are normal. Mastoid air cells are clear. Paranasal sinuses are well aerated. Mild mucosal thickening maxillary sinuses. Impression: No acute intracranial abnormality. Please note that all CT scans at this facility use dose modulation, iterative reconstruction, and/or weight-based dosing when appropriate to reduce radiation dose to as low as reasonably achievable. Dictated by Servando Rain MD @ 04/04/2021 8:08:[address] Servando Rain @ Apr 04 2021 8:08AM
[2021-04-04 09:22] VITALS: BP 118/73; PULSE 70
== END 2021-04-04 09:10 | disposition home or self-care (01) ==
LOC: MW.ED 06:20
DX: R42 Dizziness and giddiness (principal)
CPT/HCPCS: 36415; 70450; 80053; 81003; 84484; 85025; 93005; 99284; A9270; J7030; 93010

== ENCOUNTER 2022-09-27 17:22 | Emergency (ER) | payer OTHER | END 2022-09-27 18:11 | disposition left against medical advice (07) | LOC: MW.ED 17:22 | DX: Z53.21 Procedure and treatment not carried out due to patient leaving prior to being seen by health care provider (principal) ==

== ENCOUNTER 2023-01-03 08:30 | Emergency (ER) | payer OTHER, BC ==
[2023-01-03] MEDS ORDERED: LORazepam 1 MG Tab PO ONE (09:10)
[2023-01-03 10:33] VITALS: BP 96/72; PULSE 88
== END 2023-01-03 10:32 | disposition home or self-care (01) ==
LOC: MW.ED 08:30
DX: F41.9 Anxiety disorder, unspecified (principal)
CPT/HCPCS: 99283; A9270

== ENCOUNTER 2025-03-16 14:15 | Emergency (ER) | payer OTHER, BC ==
[2025-03-17 08:33] VITALS: BP 112/69; PULSE 94
== END 2025-03-16 17:07 | disposition home or self-care (01) ==
LOC: MW.ED 14:15
DX: S86.001A Unspecified injury of right Achilles tendon, initial encounter (principal); S86.002A Unspecified injury of left Achilles tendon, initial encounter; Z75.3 Unavailability and inaccessibility of health-care facilities; Z79.899 Other long term (current) drug therapy; X50.1XXA Overexertion from prolonged static or awkward postures, initial encounter; Y93.89 Activity, other specified
CPT/HCPCS: 735902650; 73590-50; 73650-26-LT; 73650-26-RT; 73650-LT; 73650-RT; 99282; 99283

== ENCOUNTER 2025-04-21 08:03 | Emergency (ER) | payer OTHER, BC ==
[2025-04-21] MEDS ORDERED: Sodium Chloride 0.9% 2.5 ML Syringe FLUSH PRN (10:18)
[2025-04-21] MEDS ORDERED: Sodium Chloride 0.9% 10 ML Syringe FLUSH PRN (10:18)
[2025-04-21 10:24] LABS: BASOPHILS ABSOLUTE AUTO 0.05 K/uL (0.00-0.20); BASOPHILS PERCENT AUTO 0.6 % (0.0-1.0); EOSINOPHILS ABSOLUTE AUTO 0.17 K/uL (0.00-0.45); EOSINOPHILS PERCENT AUTO 2.0 % (0.0-6.0); IMMATURE GRAN ABSOLUTE AUTO 0.07 K/uL (0.00-0.05); IMMATURE GRAN PERCENT AUTO 0.8 % (0.0-0.4); LYMPHOCYTES ABSOLUTE AUTO 2.30 K/uL (1.00-4.80); LYMPHOCYTES PERCENT AUTO 26.4 % (24.0-44.0); MEAN PLATELET VOLUME 10.7 fL (9.4-12.4); MONOCYTES ABSOLUTE AUTO 0.45 K/uL (0.00-0.80); MONOCYTES PERCENT AUTO 5.2 % (0.0-8.0); NEUTROPHILS ABSOLUTE AUTO 5.66 K/uL (1.80-7.70); NEUTROPHILS PERCENT AUTO 65.0 % (41.0-71.0); NRBC ABSOLUTE 0.00 K/uL (0.00-0.02); NRBC PERCENT 0.0 /100WBC (0.0-0.2); PLATELET COUNT,PLT 217 K/uL (150-400); RED BLOOD CELL COUNT 5.32 M/uL (4.52-5.90); WHITE BLOOD CELL COUNT,WBC 8.70 K/uL (3.9-11.3)
[2025-04-21 10:50] VITALS: BP 108/75
[2025-04-21 10:55] LABS: A/G RATIO 1.3 (0.9-1.6); ALANINE AMINOTRANSFERASE,ALT 35 IU/L (14-63); ASPARTATE AMNIOTRANSFERASE,AST 25 IU/L (15-37); BILIRUBIN TOTAL 0.4 mg/dL (0.2-1.0); BLOOD UREA NITROGEN,BUN 23 mg/dL (7.0-18.0); CARBON DIOXIDE,CO2 23.7 mmol/L (21.0-32.0); CHLORIDE,CL 104 mmol/L (98-107); CREATININE 1.2 mg/dL (0.8-1.3); EST CRCL DRUG DOSING (CG) 69.76 mL/min; GLUCOSE RANDOM 100 mg/dL (74-106); POTASSIUM,K 4.1 mmol/L (3.5-5.1); PROTEIN TOTAL,TP 6.6 g/dL (6.4-8.2); SODIUM,NA 137 mmol/L (136-148)
[2025-04-21 10:58] LABS: ESTIMATED GFR 77 mL/min (>60)
[2025-04-21 11:02] LABS: LACTIC ACID 0.7 mmol/L (0.4-2.0)
[2025-04-21 12:20] LABS: APPEARANCE,URINE CLEAR; GLUCOSE,URINE NEGATIVE (NEGATIVE); OCCULT BLOOD,URINE NEGATIVE (NEGATIVE)
[2025-04-21 12:30] VITALS: PULSE 95
== END 2025-04-21 12:31 | disposition home or self-care (01) ==
LOC: MW.ED 08:03
DX: E86.0 Dehydration (principal); Z79.899 Other long term (current) drug therapy
CPT/HCPCS: 36415; 80053; 81003; 82550; 83605; 83690; 83735; 84484; 85025; 96360; 99284; A9270; J7030; 99283

== ENCOUNTER 2025-08-10 20:50 | Emergency (ER) | payer BC, OTHER ==
[2025-08-10] MEDS: Sodium Chloride 0.9% 2.5 ML Syringe FLUSH PRN (21:35)
[2025-08-10] MEDS: Sodium Chloride 0.9% 10 ML Syringe FLUSH PRN (21:35)
[2025-08-10] MEDS: Ketorolac 30 MG/ML SDV IVPUSH ONE (21:35)
[2025-08-10 21:43] LABS: BASOPHILS ABSOLUTE AUTO 0.02 K/uL (0.00-0.20); BASOPHILS PERCENT AUTO 0.2 % (0.0-1.0); EOSINOPHILS ABSOLUTE AUTO 0.05 K/uL (0.00-0.45); EOSINOPHILS PERCENT AUTO 0.5 % (0.0-6.0); IMMATURE GRAN ABSOLUTE AUTO 0.07 K/uL (0.00-0.05); IMMATURE GRAN PERCENT AUTO 0.7 % (0.0-0.4); LYMPHOCYTES ABSOLUTE AUTO 1.42 K/uL (1.00-4.80); LYMPHOCYTES PERCENT AUTO 14.9 % (24.0-44.0); MEAN PLATELET VOLUME 9.7 fL (9.4-12.4); MONOCYTES ABSOLUTE AUTO 0.75 K/uL (0.00-0.80); MONOCYTES PERCENT AUTO 7.9 % (0.0-8.0); NEUTROPHILS ABSOLUTE AUTO 7.23 K/uL (1.80-7.70); NEUTROPHILS PERCENT AUTO 75.8 % (41.0-71.0); NRBC ABSOLUTE 0.00 K/uL (0.00-0.02); NRBC PERCENT 0.0 /100WBC (0.0-0.2); PLATELET COUNT,PLT 180 K/uL (150-400); RED BLOOD CELL COUNT 5.18 M/uL (4.52-5.90); WHITE BLOOD CELL COUNT,WBC 9.54 K/uL (3.9-11.3)
[2025-08-10 22:06] LABS: A/G RATIO 1.0 (0.9-1.6); ALANINE AMINOTRANSFERASE,ALT 32.0 IU/L (14-63); ASPARTATE AMNIOTRANSFERASE,AST 19.0 IU/L (15-37); BILIRUBIN TOTAL 1.3 mg/dL (0.2-1.0); BLOOD UREA NITROGEN,BUN 20.0 mg/dL (7.0-18.0); CARBON DIOXIDE,CO2 25.4 mmol/L (21.0-32.0); CHLORIDE,CL 99.0 mmol/L (98-107); CREATININE 1.5 mg/dL (0.8-1.3); EST CRCL DRUG DOSING (CG) 55.81 mL/min; GLUCOSE RANDOM 100.0 mg/dL (74-106); POTASSIUM,K 4.2 mmol/L (3.5-5.1); PROTEIN TOTAL,TP 7.3 g/dL (6.4-8.2); SODIUM,NA 136.0 mmol/L (136-148)
[2025-08-10 22:11] LABS: ESTIMATED GFR 59.0 mL/min (>60)
[2025-08-10] MEDS: cefTRIAXone 1 GM in Water For Injection, Sterile 10 ML IVPUSH ONE (22:12)
[2025-08-10 23:19] VITALS: BP 111/68
[2025-08-10 23:47] VITALS: PULSE 94
== END 2025-08-10 23:46 | disposition home or self-care (01) ==
LOC: MW.ED 20:50
DX: J18.9 Pneumonia, unspecified organism (principal); E86.0 Dehydration; Z79.899 Other long term (current) drug therapy
CPT/HCPCS: 36415; 71046; 80053; 85025; 86308; 87428; 87651; 96361; 96365; 96375; 99283; A9270; J0456; J0696; J1885; J7030; J7050